=== PATIENT | female | born 1965 | race American Indian/Alaskan Native ===

== ENCOUNTER 2019-09-10 09:22 | Emergency (ER) | payer OTHER ==
--- NOTE | 2019-09-10 09:57 | Emergency Department Report ---
ED General Adult HPI - General Stated complaint: CHEST PAIN Time Seen by Provider: 09/10/19 09:51 - History of Present Illness Initial comments: 54-year-old female with history of lupus presents to ED with multiple complaints. Patient states over the last 3 days she has been experiencing intermittent left-sided chest pain, radiating around to her back. Patient states this pain feels like a tightness. No aggravating or alleviating factors. She reports mild shortness of breath. She denies any leg pain or swelling. Patient also reports sore throat and cough, with posttussive emesis. She reports subjective fever. Patient states this morning, she felt lightheaded, as if she was going to pass out. Patient states that she was walking a short d istance from her room to the bathroom when she began to experience shaking in her right arm and leg. Patient was conscious during this event, denies any urinary incontinence. Denies any history of seizures. States that shaking lasted for approximately 10 seconds. -: days(s) (3) Associated Symptoms: chest pain, cough, fever/chills, shortness of breath, weakness - Related Data Previous Rx's Medication Instructions Recorded Last Taken Type Benzonatate [Tessalon Perles] 100 mg PO Q8HR PRN #20 capsule 09/10/19 Unknown Rx Naproxen [Naprosyn] 500 mg PO BID #20 tablet 09/10/19 Unknown Rx Sulfamethoxazole/Trimethoprim 1 each PO BID 3 Days #6 tablet 09/10/19 Unknown Rx [Bactrim DS TAB] Allergies Allergy/AdvReac Type Severity Reaction Status Date / Time No Known Allergies Allergy Unverified 09/10/19 09:54 ED Review of Systems ROS: Stated complaint: CHEST PAIN Other details as noted in HPI Comment: All other systems reviewed and negative Constitutional: fever Respiratory: cough, shortness of breath Cardiovascular: chest pain Gastrointestinal: nausea, vomiting. denies: abdominal pain Neurological: denies: headache, weakness, numbness, paresthesias ED Past Medical Hx - Medications Home Medications: Home Medications Medication Instructions Recorded Confirmed Last Taken Type Benzonatate [Tessalon Perles] 100 mg PO Q8HR PRN #20 capsule 09/10/19 Unknown Rx Naproxen [Naprosyn] 500 mg PO BID #20 tablet 09/10/19 Unknown Rx Sulfamethoxazole/Trimethoprim 1 each PO BID 3 Days #6 tablet 09/10/19 Unknown Rx [Bactrim DS TAB] ED Physical Exam - General General appearance: alert, in no apparent distress - Head Head exam: Present: atraumatic, normocephalic - Eye Eye exam: Present: normal appearance, EOMI - ENT ENT exam: Present: mucous membranes moist - Neck Neck exam: Present: normal inspection - Respiratory Respiratory exam: Present: normal lung sounds bilaterally. Absent: respiratory distress - Cardiovascular Cardiovascular Exam: Present: regular rate, normal rhythm - GI/Abdominal GI/Abdominal exam: Present: soft. Absent: distended, tenderness - Extremities Exam Extremities exam: Present: normal inspection. Absent: pedal edema, calf tenderness - Neurological Exam Neurological exam: Present: alert, oriented X3, CN II-XII intact. Absent: motor sensory deficit - Psychiatric Psychiatric exam: Present: normal affect, normal mood - Skin Skin exam: Present: warm, dry, intact, normal color ED Course Vital Signs 09/10/19 09/10/19 09/10/19 09:25 09:55 10:30 Temperature 97.9 F Pulse Rate 89 85 Respiratory 16 16 10 L Rate Blood Pressure 113/71 126/73 Blood Pressure [Right] O2 Sat by Pulse 98 98 93 Oximetry 09/10/19 09/10/19 11:00 14:25 Temperature Pulse Rate 86 85 Respiratory 13 18 Rate Blood Pressure 126/69 Blood Pressure 128/73 [Right] O2 Sat by Pulse 96 98 Oximetry ED Medical Decision Making - Lab Data Result diagrams: 09/10/19 10:02 09/10/19 10:02 - EKG Data -: EKG Interpreted by [facility] EKG shows normal: sinus rhythm, axis, intervals, QRS complexes, ST-T waves Rate: normal - EKG Data Interpretation: no acute changes - Radiology Data Radiology results: report reviewed, image reviewed Critical care attestation.: If time is entered above; I have spent that time in minutes in the direct care of this critically ill patient, excluding procedure time. ED Disposition Clinical Impression: Acute chest pain, URI (upper respiratory infection), UTI (urinary tract infection) Disposition: - TO HOME OR SELFCARE Is pt being admited?: No Condition: Stable Instructions: Chest Pain (ED), Urinary Tract Infection in Women (ED), Upper Respiratory Infection (ED) Referrals: [facility] [Provider Group] - 3-5 Days [facility] [Outside] - 3-5 Days AWILDA STRAUSS MD [Staff Physician] - 3-5 Days LEON RODRIGUEZ MD [Staff Physician] - 3-5 Days Time of Disposition: 14:51
[2019-09-10 10:35] LABS: Basophils % (Auto) 0.3 % (0.0-1.8); Eosinophils % (Auto) 0.1 % (0.0-4.3); Hemoglobin 12.4 gm/dl (10.1-14.3); Lymphocytes # (Auto) 2.5 K/mm3 (1.2-5.4); Lymphocytes % (Auto) 16.8 % (13.4-35.0); Mean Corpuscular HGB Conc 33 % (30-34); Mean Corpuscular Volume 75 fl (79-97); Monocytes % (Auto) 7.1 % (0.0-7.3); Platelet Count 191 K/mm3 (140-440); Red Blood Count 5.05 M/mm3 (3.65-5.03); Red Cell Distribution Width 17.6 % (13.2-15.2)
--- NOTE | 2019-09-10 10:35 | XRay Report ---
CHEST 1 VIEW INDICATION: chest pain. COMPARISON: None FINDINGS: Support devices: None. Heart: Within normal limits. Lungs/Pleura: No acute air space or interstitial disease. Additional findings: None. IMPRESSION: 1. No acute findings. Signer Name: Min Gu MD Signed: 09/10/2019 10:30 AM Workstation Name: [id number]
[2019-09-10 10:45] LABS: INR 1.07 (0.87-1.13)
[2019-09-10 10:46] LABS: Partial Thromboplastin Time 30.2 Sec. (24.2-36.6)
[2019-09-10 10:47] LABS: BUN/Creatinine Ratio 14; Blood Urea Nitrogen 10 mg/dL (7-17); Calcium 9.1 mg/dL (8.4-10.2); Hemolysis Index 7
[2019-09-10 12:12] LABS: Bacteria,Urine 1+ /HPF (Negative); Bilirubin,Urine NEG (Negative); Blood,Urine MOD (Negative); Color,Urine Yellow (Yellow); Hyaline Casts,Urine 1 /LPF; Mucus,Urine FEW /HPF; Urobilinogen,Urine < 2.0 mg/dL (<2.0)
--- NOTE | 2019-09-10 13:40 | Cat Scan Report ---
CT angio chest INDICATION: chest pain. TECHNIQUE: All CT scans at this location are performed using CT dose reduction for ALARA by means of automated e xposure control. Precontrast localizer images were obtained, followed by axial and 3-dimensional reconstruction images , performed at an independent workstation by the blood bank technologist after IV bolus contrast injection. COMPARISON: None available. FINDINGS: Mediastinum, stacey and axillae are negative. Low-attenuation lesion in the dome of the liver is though t to represent a benign cyst. No pleural fluid. No significant parenchymal lesions. No evidence of pulmonary embolus. IMPRESSION: 1. No pulmonary embolus or other acute abnormality. Signer Name: Michael Crowell MD Signed: 09/10/2019 1:36 PM Workstation Name: [id number]
--- NOTE | 2019-09-10 13:53 | Cat Scan Report ---
CT HEAD WITHOUT CONTRAST INDICATION / CLINICAL INFORMATION: seizure-like activity. TECHNIQUE: All CT scans at this location are performed using CT dose reduction for ALARA by means of automated e xposure control. COMPARISON: None available. FINDINGS: HEMORRHAGE: No evidence of intracranial hemorrhage or extra-axial fluid collection. EXTRA-AXIAL SPACES: Cortical sulci, sylvian fissures and basilar cisterns have an unremarkable appear ance. VENTRICULAR SYSTEM: The ventricular system is of normal size and configuration. CEREBRAL PARENCHYMA: No areas of abnormal brain parenchymal attenuation are identified. There is no i ndication of recent infarction. MIDLINE SHIFT OR HERNIATION: There is no mass effect. CEREBELLUM / BRAINSTEM: Brainstem and cerebellum have an unremarkable appearance. INTRACRANIAL VESSELS:No abnormalities are identified on this noncontrast head CT. ORBITS: visualized portions of the orbits have an unremarkable appearance. SOFT TISSUES of HEAD: No significant abnormality. CALVARIUM: Evaluation of bone windows reveals no abnormalities. PARANASAL SINUSES / MASTOID AIR CELLS: Subtotal opacification of the left maxillary sinus is noted. IMPRESSION: 1. No intracranial abnormalities identified on head CT without contrast. Signer Name: Eric Kumar MD Signed: 09/10/2019 1:48 PM Workstation Name: [id number]
[2019-09-10 14:27] VITALS: BP 128/73
== END 2019-09-10 15:10 | disposition home or self-care (01) ==
LOC: ED 09:22
DX: J06.9 Acute upper respiratory infection, unspecified (principal); N39.0 Urinary tract infection, site not specified; Z79.899 Other long term (current) drug therapy
CPT/HCPCS: 36415; 70450; 71045; 71275; 80048; 81001; 84484; 85025; 85379; 85610; 85730; 87086; 93005; 93010; 99285; Q9967